=== PATIENT | female | born 1965 | race Caucasian/White ===

== ENCOUNTER 2022-05-04 13:19 | Outpatient (CLI) | payer BC, SELFPAY ==
--- NOTE | 2022-05-04 14:29 | ECHO_ITS ---
Patient Info Name: Melissa Wise Age: 56 years : 1965 Gender: Female Ht: 67 in Wt: 247 lbs BSA: 2.35 m2 HR: 76 bpm BP: 156 / 94 mmHg Technical Quality: Good Exam Date: 05/04/2022 2:23 PM Exam Location: [facility] Patient Status: Outpatient Admit Date: 05/04/2022 Staff Ordering Physician: Antwon Parker MD Filler Machine Operator: Kevin Duarte RDCS, RT Attending Provider: Antwon Parker MD Exam Type: CA echo doppler color flow Study Info Indications I10 - Essential (primary) hypertension Complete two-dimensional, color flow and Doppler transthoracic echocardiogram is performed. Strain analysis performed. Summary 1. Complete two-dimensional, color flow and Doppler transthoracic echocardiogram is performed. 2. Left ventricular chamber dimension is normal. 3. Left ventricular systolic function is normal, estimated at 55-60%. 4. There is mildly increased left ventricular wall thickness. 5. The left ventricular diastolic function is grade I diastolic dysfunction. 6. E/e' 8 is minimally elevated. 7. Global longitudinal strain is normal at -21.1%. 8. Left atrial chamber dimension is mildly enlarged. Left Ventricle E/e' 8 is minimally elevated. Global longitudinal strain is normal at -21.1%. Left ventricular chamber dimension is normal. Left ventricular systolic function is normal, estimated at 55-60%. There is mildly increased left ventricular wall thickness. The left ventricular diastolic function is grade I diastolic dysfunction. Right Ventricle Right ventricular systolic function is normal and with normal TAPSE 2.6 cm. Right ventricular chamber dimension is normal. Left Atria Left atrial chamber dimension is mildly enlarged. Right Atria Right atrial chamber dimension is normal. Aortic Valve The aortic valve is trileaflet. There is no aortic valve stenosis. There is no aortic valve regurgitation. Pulmonic Valve There is no pulmonic regurgitation. Mitral Valve There is no mitral valve stenosis. There is no mitral valve regurgitation. Tricuspid Valve There is no tricuspid valve regurgitation. Pericardium/Pleural There is no pericardial effusion. Inferior Vena Cava Normal inferior vena cava with >50% collapse upon inspiration consistent with normal right atrial pressure, 5 mmHg. Aorta The aortic root size at the sinus of Valsalva is normal. Left Ventricular Outflow Tract Name Value Normal LVOT 2D LVOT Diameter 2.0 cm LVOT Doppler LVOT Peak Velocity 111 cm/s LVOT Peak Gradient 5 mmHg LVOT Mean Gradient 3 mmHg LVOT VTI 23 cm LVOT VTI/AV VTI Ratio 0.8 LVOT Stroke Volume 70 ml Mitral Valve Name Value Normal MV Doppler MV Decel Travis 294 cm/
== END 2022-05-04 13:20 | disposition home or self-care (01) ==
LOC: CHSIMG 13:25
PROVIDERS: PCP Internal Medicine; Visit Provider Internal Medicine
DX: R94.31 Abnormal electrocardiogram [ECG] [EKG] (principal); I10 Essential (primary) hypertension
CPT/HCPCS: 93306

== ENCOUNTER → 2022-07-27 13:47 | Outpatient (CLI) | payer BC, SELFPAY ==
--- NOTE | ~2022-07-27 | MM_ITS ---
EXAMINATION: MM screening beatriz BI w keyla HISTORY: Screening mammogram TECHNIQUE: Craniocaudal and mediolateral oblique 3-D tomosynthesis images were obtained and synthetic 2-D images were generated. CAD analysis was submitted and interpreted. COMPARISON: 11/24/2013 bilateral diagnostic mammogram and right breast ultrasound examination BREAST PARENCHYMAL COMPOSITION: There are scattered areas of fibroglandular density. FINDINGS: There is no evidence of suspicious mass, calcification, or architectural distortion to sugg est malignancy in either breast. There has been no suspicious interval change. IMPRESSION: 1. No mammographic evidence of malignancy. 2. Recommend routine screening mammography in one year. BI-RADS Category 1: Negative Reviewed, dictated and finalized at location A. [employer] MACHINE OPERATOR
== END ==
PROVIDERS: PCP Internal Medicine; Visit Provider Nurse Practitioner Obstetrics & Gynecology
DX: Z12.31 Encounter for screening mammogram for malignant neoplasm of breast (principal)
CPT/HCPCS: 77063; 77067

== ENCOUNTER 2024-01-14 04:47 | Emergency (ER) | payer BC, SELFPAY ==
[2024-01-14 04:47] VITALS: BP 192/105; PULSE 88; RESP 18; TEMP 36.3; O2SAT 97
[2024-01-14 05:04] VITALS: BP 157/97; PULSE 81; RESP 17; O2SAT 97
--- NOTE | 2024-01-14 05:05 | ED.ARRPALP ---
HPI - Arrhythmia/Palpitations General Chief Complaint: Chest Pain Stated Complaint: chest pain Time Seen by Provider: 01/14/24 05:04 History of Present Illness HPI narrative: Pt presents with feeling of her heart beating fummy in chest. Feels like fluttering or skipping. Pt denies pain. Pt does not drink excessive caffeine, does not smoke and is not under a great deal of stress. Pt has had this before but it's usually brief but this has lasted for several hours and she can't sleep. Related Data Home Medications Medication Instructions Recorded Confirmed fluoxetine 40 mg capsule 40 mg PO DAILY 01/14/24 01/14/24 metformin 500 mg tablet,extended 500 mg PO DAILY 01/14/24 01/14/24 release 24 hr telmisartan 40 mg tablet 40 mg PO DAILY 01/14/24 01/14/24 Allergies Allergy/AdvReac Type Severity Reaction Status Date / Time No Known Allergies Allergy Verified 01/14/24 05:07 Review of Systems Review of Systems: All systems reviewed & are unremarkable except as noted in HPI and below Exam Const: General: healthy appearing and no acute distress Nutritional Appearance: well nourished Orientation/consciousness: patient oriented x3 Limitations: no limitations Chest: Chest palpation & inspection: normal inspection of the chest Resp: Effort & Inspection: normal respiratory effort Auscultation: clear to auscultation bilaterally Cardio: Rate: regular rate Rhythm: regular rhythm GI: GI Palp: Yes Soft to palpation and No Tenderness to palpation present (GI) Auscultation: normal bowel sounds Skin: General skin exam: normal color Rashes: no rashes Wounds: no wounds Neuro: General: patient oriented x3 and moves all extremities Cranial nerves: Yes Nystagmus not present Speech: normal speech Extrem: General: normal to inspection and no clubbing, cyanosis or edema Psych: Mental Status: mental status grossly normal Affect: normal affect Attitude: cooperative Course Vital Signs Vital signs: Vital Signs Temperature 97.4 F L 01/14/24 04:47 Pulse Rate 88 01/14/24 04:47 Respiratory Rate 18 01/14/24 04:47 Blood Pressure 192/105 H 01/14/24 04:47 Pulse Oximetry 97 01/14/24 04:47 Oxygen Delivery Room Air 01/14/24 04:47 Temperature 97.4 F L 01/14/24 04:47 Pulse Rate 74 01/14/24 05:16 Respiratory Rate 19 01/14/24 05:16 Blood Pressure 143/84 H 01/14/24 05:16 Pulse Oximetry 99 01/14/24 05:16 Oxygen Delivery Room Air 01/14/24 05:16 MDM - Arrhythmia/Palpitations MDM Narrative Medical decision making narrative: Pt presents with p[alpitations. ekg shows pvc's. Will check electrolytes and trop. labs normal. feels better. home Differential Diagnosis Differential diagnosis: Likely palpitations, anxiety, sinus tachycardia, artial fibrillation, ventricular premature beats and supraventricular tachycardia Lab Data 01/14/24 05:06 01/14/24 05:06 Labs: Lab Results 01/14/24 Range/Units 05:06 WBC 9.0 (4.8-10.8) K/mm3 RBC 4.37 (4.20-5.40) M/mm3 Hgb 13.7 (12.0-15.0) g/dL Hct 41.4 (35.0-49.0) % MCV 94.7 (78.0-102.0) fL MCH 31.4 H (27.0-31.0) pg MCHC 33.1 (32-36) g/dL RDW 12.7 (11.6-14.4) % Plt Count 234 (150-420) K/mm3 MPV 11.3 (9.2-11.8) fl Immature Gran % (Auto) 0.1 H (0.0-0.0) % Neut % (Auto) 70.8 H (50.0-70.0) % Lymph % (Auto) 19.4 (18.0-42.0) % Powell % (Auto) 8.7 (2.0-11.0) % Eos % (Auto) 0.7 L (1.0-6.0) % Baso % (Auto) 0.3 (0.0-1.0) % Lymph # (Auto) 1.74 (1.10-4.50) K/mm3 Powell # (Auto) 0.78 (0.10-0.90) K/mm3 Eos # (Auto) 0.06 (0.02-0.50) K/mm3 Baso # (Auto) 0.03 (0.00-0.10) K/mm3 Abs Immat Gran (auto) 0.01 H (0.00-0.00) K/mm3 Absolute Neuts (auto) 6.36 (1.70-7.20) K/mm3 Absolute Nucleated RBC 0.00 (0.00-0.00) K/mm3 Nucleated RBC % 0.0 (0-0.0) % Sodium 140 (136-145) mmol/L Potassium 3.5 (3.5-5.1) mmol/L Chloride 103 (98-108) mmol/L Carbon Dioxide 25 (21-32) mmol
[2024-01-14 05:10] LABS: Basophils Absolute Auto 0.03 K/mm3 (0.00-0.10); Basophils Percent Auto 0.3 % (0.0-1.0); Eosinophils Absolute Auto 0.06 K/mm3 (0.02-0.50); Eosinophils Percent Auto 0.7 % (1.0-6.0); Hematocrit 41.4 % (35.0-49.0); Hemoglobin 13.7 g/dL (12.0-15.0); Immature Granulocyte Absolute 0.01 K/mm3 (0.00-0.00); Immature Granulocyte Percent A 0.1 % (0.0-0.0); Lymphocytes Absolute Auto 1.74 K/mm3 (1.10-4.50); Lymphocytes Percent Auto 19.4 % (18.0-42.0); Mean Corpuscular HGB Conc 33.1 g/dL (32-36); Mean Corpuscular Hemoglobin 31.4 pg (27.0-31.0); Mean Corpuscular Volume 94.7 fL (78.0-102.0); Mean Platelet Volume 11.3 fl (9.2-11.8); Monocytes Absolute Auto 0.78 K/mm3 (0.10-0.90); Monocytes Percent Auto 8.7 % (2.0-11.0); Neutrophils Absolute Auto 6.36 K/mm3 (1.70-7.20); Neutrophils Percent Auto 70.8 % (50.0-70.0); Platelet Count Result 234 K/mm3 (150-420); Red Blood Count 4.37 M/mm3 (4.20-5.40); Red Cell Distribution Width 12.7 % (11.6-14.4)
[2024-01-14] MEDS: SODIUM CHLORIDE 0.9% IV 1,000 ML 999 ML IV CONT (05:15)
[2024-01-14 05:16] VITALS: BP 143/84; PULSE 74; RESP 19; O2SAT 99
--- NOTE | 2024-01-14 05:26 | PC.NURSE ---
patient updated on length of time for blood work to be completed. blanket was given to patient. call light is in reach. denies any other needs at this time
[2024-01-14 05:27] LABS: Alanine Aminotransferase 52 U/L (14-59); Albumin Level 3.6 g/dL (3.4-5.0); Alkaline Phosphatase 92 U/L (46-116); Anion Gap 12 mmol/L (4-12); Aspartate Amino Transferase 42 U/L (15-37); Bilirubin,Total 0.7 mg/dL (0.00-1.00); Blood Urea Nitrogen 10 mg/dL (7-18); Calcium 8.7 mg/dL (8.5-10.1); Carbon Dioxide 25 mmol/L (21-32); Chloride 103 mmol/L (98-108); Estimated CRCL calculation 87 ml/min; Estimated Glomerular Filt Rate > 60; Glucose 130 mg/dL (70-99); Osmolality Calculated 291 mOsm/kg (285-295); Potassium 3.5 mmol/L (3.5-5.1); Sodium 140 mmol/L (136-145); Total Protein 6.9 g/dL (6.4-8.2); Troponin I 4.3 ng/L (0.00-60.4)
[2024-01-14 05:31] VITALS: BP 158/83; PULSE 73; RESP 20; O2SAT 98
--- NOTE | 2024-01-14 05:34 | PC.NURSE ---
ER provider at the bedside
--- NOTE | 2024-01-14 07:30 | ECG_ITS ---
Test Date: 2024-01-14 04:54:44 Measurements Intervals Bend Rate: 77 P: 63 MD: 138 QRS: -25 QRSD: 100 T: 1 QT: 360 QTc: 409 Interpretive Statements SINUS RHYTHM WITH OCCASIONAL SUPRAVENTRICULAR PREMATURE COMPLEXES LOW QRS VOLTAGE IN PRECORDIAL LEADS INCOMPLETE RIGHT BUNDLE BRANCH BLOCK BORDERLINE R WAVE PROGRESSION, ANTERIOR LEADS CONSIDER INFERIOR INFARCT, AGE INDETERMINATE BORDERLINE ST-T WAVE ABNORMALITY- ANTERIOR LEADS BASELINE ARTIFACT- I, II, III, AVR, AVL, AVF ABNORMAL ECG No previous ECG available for comparison Electronically Signed On 01-14-2024 08:38:10 CDT by Best Olivares D.O.
== END 2024-01-14 05:45 | disposition home or self-care (01) ==
PROVIDERS: Emergency Provider Emergency Medicine; PCP Internal Medicine
DX: R00.2 Palpitations (principal); Z79.899 Other long term (current) drug therapy; Z79.84 Long term (current) use of oral hypoglycemic drugs
CPT/HCPCS: 36415; 80053; 83735; 84484; 85025; 93005; 99284; J7030

== ENCOUNTER 2024-02-06 08:37 | Outpatient (CLI) | payer BC, SELFPAY ==
[2024-02-06 09:59] LABS: Alanine Aminotransferase 79 U/L (14-59); Albumin Level 3.6 g/dL (3.4-5.0); Alkaline Phosphatase 113 U/L (46-116); Anion Gap 8 mmol/L (4-12); Aspartate Amino Transferase 51 U/L (15-37); Bilirubin,Total 0.7 mg/dL (0.00-1.00); Blood Urea Nitrogen 8 mg/dL (7-18); Calcium 8.9 mg/dL (8.5-10.1); Carbon Dioxide 33 mmol/L (21-32); Chloride 103 mmol/L (98-108); Estimated Glomerular Filt Rate > 60; Ferritin 204 ng/mL (8-252); Free T3 2.25 pg/mL (2.18-3.98); Free T4 Free Thyroxine 1.02 ng/dL (0.76-1.46); Glucose 96 mg/dL (70-99); Osmolality Calculated 296 mOsm/kg (285-295); Potassium 3.5 mmol/L (3.5-5.1); Sodium 144 mmol/L (136-145); Total Protein 6.4 g/dL (6.4-8.2)
[2024-02-06 17:11] LABS: Thyroid Stimulating Hormone 1.07 uIU/mL (0.36-3.74)
[2024-02-07 08:59] LABS: Hepatitis B Surface Antigen NON-REACTIVE (NON-REACTIVE)
[2024-02-07 09:23] LABS: Hepatitis B Core Antibody NON-REACTIVE (NON-REACTIVE); Hepatitis C Virus Antibody NON-REACTIVE (NON-REACTIVE)
[2024-02-07 18:53] LABS: Hepatitis A Antibody IgM NON-REACTIVE (NON-REACTIVE)
== END 2024-02-06 08:38 | disposition home or self-care (01) ==
LOC: CHSLAB 08:39
PROVIDERS: PCP Internal Medicine; Visit Provider Internal Medicine
DX: R94.5 Abnormal results of liver function studies (principal); R00.2 Palpitations
CPT/HCPCS: 36415; 80053; 80074; 82728; 84439; 84443; 84481

== ENCOUNTER 2024-02-12 08:29 | Outpatient (CLI) | payer BC, SELFPAY ==
--- NOTE | ~2024-02-12 | US_ITS ---
US right upper quadrant INDICATION: Abnormal liver enzymes PROCEDURE: Realtime right upper abdominal ultrasound. COMPARISON: No prior studies for comparison. FINDINGS: The pancreas is normal without focal mass or pancreatic ductal dilation. Liver echotexture is normal without focal mass or intrahepatic biliary dilatation. There is normal directional flow i n the portal vein. There are gallstones. No gallbladder wall thickening or pericholecystic fluid. Common bile duct katherine ures 3 mm. No sonographic Duarte's sign. IMPRESSION: 1: Cholelithiasis. Reviewed, dictated and finalized at location B. IMPRESSION: 1: Cholelithiasis.
== END 2024-02-12 08:30 | disposition home or self-care (01) ==
LOC: CHSIMG 08:31
PROVIDERS: PCP Internal Medicine; Visit Provider Internal Medicine
DX: R94.5 Abnormal results of liver function studies (principal); K80.20 Calculus of gallbladder without cholecystitis without obstruction
CPT/HCPCS: 76705